=== PATIENT | male | born 1960 | race Caucasian/White ===

== ENCOUNTER 2020-04-24 21:18 | Emergency (ER) | payer OTHER ==
[~2020-04-24] VITALS: Ht 165.1 cm; Wt 59.0 kg
[~2020-04-24 21:18] MED LIST: ACETAMINOPHEN325 M1 PO; AMBIEN 10 MG TA10 MG PO; BACTRIM DS TAB1 EACH PO; COLACE 100 MG100 MG PO; CYMBALTA30 MG PO; DESYREL50 MG PO; DOLOPHINE HCL5 MG PO; FOLIC ACID1 MG PO; KEFLEX500 MG; LIDODERM 5%1 PATC1 TOP; MOM PO; MULTIVITAMINS PO; MULTIVITAMINS1 EAC7; NORCO 5-325 TA1 EACH PO; OMEPRAZOLE 20 M20 M1 PO; OYSTER SHELL C1 EA14; OYSTER SHELL CALCIUM PO; PERCOCET 7.5-31 EACH PO; SEROQUEL 100 M100 M1 PO; SEROQUEL 25 MG25 M1 PO; SEROQUEL 50 MG50 M1 PO; VITAMIN B-1100 M1 PO
[2020-04-25 07:04] VITALS: BP 120/68
== END 2020-04-25 06:48 | disposition home or self-care (01) ==
LOC: ER 21:18
DX: F10.129 Alcohol abuse with intoxication, unspecified (principal); F31.9 Bipolar disorder, unspecified; F17.210 Nicotine dependence, cigarettes, uncomplicated; Z79.899 Other long term (current) drug therapy

== ENCOUNTER 2021-04-08 14:50 | Emergency (ER) | payer OTHER ==
[~2021-04-08] VITALS: Ht 167.6 cm; Wt 63.5 kg
[2021-04-08 16:09] LABS: ABSOLUTE NEUTROPHILS 6.7 thou/uL (1.4-8.2); BASOPHILS 0.4 % (0.0-2.0); EOSINOPHILS 0.3 % (0.0-3.0); HEMATOCRIT 38.4 % (42.0-52.0); HEMOGLOBIN 12.9 gm/dL (14.0-18.0); LYMPHOCYTES 12.1 % (24.0-44.0); MCH 33.7 pg (26.0-34.0); MCHC 33.7 g/dL (28.0-37.0); MCV 100.1 fL (80.0-100.0); PLATELET COUNT 268 thou/uL (150-400); POLYS 81.2 % (36.0-66.0); RBC 3.83 mil/uL (4.50-6.00); RDW 15.8 % (10.5-14.5); WBC 8.3 thou/uL (4.0-11.0)
[2021-04-08 16:21] LABS: CALCIUM 8.4 mg/dL (8.5-10.1); CREATININE 1.1 mg/dL (0.7-1.3); POTASSIUM 3.3 mmol/L (3.5-5.1)
[2021-04-08 17:35] LABS: URINE BILIRUBIN NEGATIVE (Negative); URINE BLOOD NEGATIVE (Negative); URINE CLARITY CLEAR; URINE COLOR YELLOW; URINE GLUCOSE-RANDOM* NEGATIVE (Negative); URINE KETONES NEGATIVE (Negative); URINE LEUKOCYTES-REFLEX NEGATIVE (Negative); URINE NITRITE-REFLEX NEGATIVE (Negative); URINE PROTEIN (DIPSTICK) NEGATIVE (Negative); URINE SPECIFIC GRAVITY <= 1.005 (1.005-1.035); URINE UROBILINOGEN 0.2 E.U./dl (0.2-1.0)
[2021-04-08 17:45] LABS: AMP/METHAMP Negative (Negative); BARBITURATES Negative (Negative); BENZODIAZEPINES Negative (Negative); COCAINE Negative (Negative); METHADONE Negative (Negative); OPIATES Negative (Negative); PCP Negative (Negative)
[2021-04-08 22:49] VITALS: BP 98/63
--- NOTE | 2021-04-09 12:45 | EKG ---
[place] [address] [employer] [facility] [place] [address] ELECTROCARDIOGRAM REPORT Name: CORBINKENNETH Harris [id number] Admission: 04/08/21 Attend Phys: Discharge: 04/08/21 Date of : 64 Report #: [id number] [facility] ED Test Date: 2021-04-08 Test Time: 17:51:54 Pat Name: KENNETH ALANIZ Department: Room: Gender: Mr Teacher: YARELY : 1960 Requested By: Sai Bacon Order Number: [id number] MD: Francisco Castorena Measurements Intervals [place] Rate: 88 P: 57 NC: 141 QRS: -17 QRSD: 97 T: 62 QT: 380 QTc: 460 Interpretive Statements Sinus rhythm Probable left atrial enlargement Borderline left axis deviation Borderline T wave abnormalities Baseline wander in lead(s) V3,V5 No previous ECG available for comparison Electronically Signed On 04-09-2021 12:45:02 [employer] by Francisco Castorena [email or web address] <ELECTRONICALLY SIGNED> By: Francisco Castorena MD 04/09/21 1245 D: [id number] 50 Francisco Castorena MD /ADENIKE
== END 2021-04-08 22:50 | disposition home or self-care (01) ==
LOC: ER 14:50
PROVIDERS: Nurse Practitioner
DX: F10.129 Alcohol abuse with intoxication, unspecified (principal); F31.9 Bipolar disorder, unspecified; F12.90 Cannabis use, unspecified, uncomplicated; F17.210 Nicotine dependence, cigarettes, uncomplicated; Z79.891 Long term (current) use of opiate analgesic; Z79.899 Other long term (current) drug therapy; Z79.1 Long term (current) use of non-steroidal anti-inflammatories (NSAID)